=== PATIENT | female | born 1995 | race Caucasian/White ===

== ENCOUNTER 2018-07-07 08:55 | Day surgery (SDC) | payer OTHER ==
[~2018-07-07] VITALS: Ht 160 cm; Wt 56.4 kg
[2018-07-07] MEDS ORDERED: SOD CHLORIDE 0.9% 1,000 ML IV SCH (10:00)
[2018-07-07 10:04] VITALS: Ht 160 cm; Wt 56.4 kg
[2018-07-07 10:09] VITALS: BP 109/72; PULSE 75; RESP 16
[2018-07-07] MEDS ORDERED: BUPIVACAINE 0.25%/EPI (SDV) 30 ML INJ ONE (10:22)
[2018-07-07] MEDS ORDERED: CEFAZOLIN 1 GM INJ ONE (10:34)
[2018-07-07] MEDS ORDERED: LIDOCAINE 100 MG SYRINGE ONE (10:34)
[2018-07-07] MEDS ORDERED: FENTAnyl 50 MCG/ML VIAL ONE (10:35)
[2018-07-07] MEDS ORDERED: ONDANSETRON 4 MG INJ ONE (10:35)
[2018-07-07] MEDS ORDERED: PROPOFOL 100 ML ONE (10:35)
[2018-07-07] MEDS ORDERED: DEXAMETHASONE 4 MG/ML 5 ML INJ ONE (10:35)
[2018-07-07] MEDS ORDERED: MIDAZOLAM 1 MG/ML 2 ML INJ ONE (10:35)
--- NOTE | 2018-07-07 11:03 | PREAC ---
Date/Time of Note Date/Time of Note DATE: 07/07/18 TIME: 11:01 Anesthesia Eval and Record Evaluation Time Pre-Procedure Interview DATE: 07/07/18 TIME: 1035 Age 23 Sex female NPO: 8 hrs Preoperative diagnosis Right Breast Mass Planned procedure Excision Right Breast Mass Past Medical History Past Medical History: None Surgery & Anesthesia Issues No known issue Meds Anticoagulation: No Beta Meg within 24 hr: No Reason Beta Meg not given: Pt. not on B-Meg No Active Prescriptions or Reported Meds Current Medications Sodium Chloride 1,000 ml @ 75 mls/hr [id number] IV Last administered on 07/07/18at 10:12; Admin Dose 75 MLS/HR; Start 07/07/18 at 10:00 Meds reviewed: Yes Allergies Coded Allergies: No Known Allergy (Unverified , 07/07/18) Allergies Reviewed: No Labs/Studies Labs Reviewed: Reviewed by anesthesiologist Result Diagram: 07/07/18 0945 07/07/18 0945 Laboratory Tests 07/07/18 09:45 test: Negative Pre-procedure Exam Last vitals Vital Signs Date Temp Pulse Resp B/P (MAP) Pulse Ox O2 O2 Flow FiO2 Time Delivery Rate 07/07/18 97.9 75 16 109/72 100 Room Air 10:09 (84) Airway: Adequate mouth opening Mallampati: Mallampati I Teeth: Normal Lung: Normal Heart: Normal ASA Physical Status ASA physical status: 1 Emergency: None Pre-operative Attestations Prior to commencing anesthesia and surgery, the patient was re-evaluated, there was verification of: *The patient's identity *The results of appropriate recent lab work and preoperative vital signs *The above evaluation not changing prior to induction *Anesthetic plan, risk benefits, alternative and complications discussed with patient/family; questions answered; patient/family understands, accepts and wishes to proceed. SHARYN WARREN MD July 07, 2018 11:03
[2018-07-07] MEDS ORDERED: PHENYLephrine (100 MCG/ML) 10ML SYG ONE (11:08)
[2018-07-07] MEDS ORDERED: MEPERIDINE 25 MG INJ IV PRN (11:30)
[2018-07-07] MEDS ORDERED: KETOROLAC 30 MG INJ IV PRN (11:30)
[2018-07-07] MEDS ORDERED: ONDANSETRON 4 MG INJ IV PRN ×2 (11:30)
[2018-07-07] MEDS ORDERED: morphine 2 MG INJ IV PRN (11:30)
[2018-07-07] MEDS ORDERED: DIPHENHYDRAMINE 50 MG INJ IV PRN (11:30)
[2018-07-07] MEDS ORDERED: HYDROCODONE/APAP (5/325) TAB PO PRN (11:30)
[2018-07-07] MEDS ORDERED: IBUPROFEN 600 MG TAB PO PRN (11:30)
[2018-07-07] MEDS ORDERED: HYDROmorphONE 1 MG/5 ML IV SYRINGE IV PRN ×3 (11:30)
[2018-07-07 11:35] VITALS: BP 104/58; PULSE 89; RESP 17
--- NOTE | 2018-07-07 11:36 | OPR ---
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 According to the patient this is been present for the past 3 to 4 months. She reported growth and occasional discomfort. The patient had an ultrasound which showed a dominant vascular 3.4 cm upper inner quadrant right breast mass. Given the above findings the patient was scheduled for elective excision of the right breast mass. All risks and benefits of the procedure including, but not limited to: Wound infection, excessive bleeding, postoperative seroma/hematoma formation, possible need for subsequent surgeries, loss of nipple areolar sensation, etc. were explained to the patient in full detail. She fully understood and wished to proceed with the procedure. Informed consent was obtained. Procedure Description The patient was brought to the operating room and placed supine on the operating table. Bilateral sequential compression devices were placed on both lower extremities. A dose of broad-spectrum perioperative intravenous antibiotics was given. The mass which was located in the upper inner quadrant of the right breast was preoperatively marked and confirmed with the patient in the holding area. After the induction of smooth general anesthesia the patient's right breast and chest wall were prepped and draped in standard surgical fashion. After performance of the surgical timeout 0.25% Marcaine with epinephrine was injected around the area of the incision. An incision was then made using a 15 blade scalpel over the mass in the right upper inner quadrant. Incision was carried down through the skin and subcutaneous tissues to the level of breast tissue using sharp dissection and Bovie electrocautery. Flaps were then raised circumferentially. The mass was identified. It appeared consistent with a fibroadenoma. It was circumferentially dissected and freed from surrounding tissues using combination of blunt dissection and Bovie electrocautery. Was then able to be delivered through the incision. It was transected at its base. Marking sutures were used to mily the superior and lateral aspects. Mass measured approximately 4 cm in maximal dimension. Specimen was then passed off the field. At this point hemostasis was inspected for and noted to be total. The wound cavity was irrigated and the irrigant returned clear. The wound was then closed in layers using interrupted 3-0 Vicryl sutures for the deep breast tissue. The dermal layer was also reapproximated with interrupted 3-0 Vicryl sutures. The skin was then reapproximated using a running 4-0 Monocryl suture in subcuticular fashion. Incision was cleaned and Dermabond was applied as well as sports bra. The patient was then awoken from anesthesia and transferred to the recovery room in stable condition. All counts were correct at the end of the case 2. AUGUSTUS MARTIN MD July 07, 2018 11:36
[2018-07-07 11:40] VITALS: BP 101/57; PULSE 82; RESP 17
[2018-07-07 11:41] VITALS: BP 101/57; PULSE 82; RESP 17
[2018-07-07 11:46] VITALS: BP 104/58; PULSE 90; RESP 17
--- NOTE | 2018-07-07 12:18 | PAC ---
Date/Time of Note Date/Time of Note DATE: 07/07/18 TIME: 12:18 Post-Anesthesia Notes Post-Anesthesia Note Last documented vital signs Vital Signs Date Temp Pulse Resp B/P (MAP) Pulse Ox O2 O2 Flow FiO2 Time Delivery Rate 07/07/18 90 17 104/58 100 Mask 8.0 11:46 (73) 07/07/18 97.7 11:37 Activity: WNL Respiratory function: WNL Cardiovascular function: WNL Mental status: Baseline Pain reasonably controlled: Yes Hydration appropriate: Yes Nausea/Vomiting absent: Yes SHARYN WARREN MD July 07, 2018 12:18
[2018-07-07 12:35] VITALS: BP 100/66; PULSE 71; RESP 18
== END 2018-07-07 13:02 | disposition home or self-care (01) ==
LOC: SDS 08:55
PROVIDERS: ATTEND Surgery
DX: D24.1 Benign neoplasm of right breast (principal)
CPT/HCPCS: 19120; 80048; 85025; 85610; 85730; 88307; J0690; J1100; J2001; J2250; J2405; J3010; Z7512; Z7610; J2370